=== PATIENT | male | born 1995 | race African-American/Black ===

== ENCOUNTER 2020-07-25 11:35 | Emergency (ER) | payer OTHER ==
[~2020-07-25] VITALS: Ht 185.4 cm; Wt 113.4 kg
[2020-07-25] MEDS ORDERED: ALBUTEROL SULFATE 2.5 MG/3 ML NEBU ONE (12:04)
[2020-07-25] MEDS ORDERED: ACETAMINOPHEN ES 500 MG TABLET PO ONE (12:15)
[2020-07-25] MEDS ORDERED: ACETAMINOPHEN ES 500 MG TABLET ONE (12:23)
--- NOTE | 2020-07-25 12:29 | NUR ---
Patient discharged to home in stable condition. Written and verbal after care instructions given. Patient verbalizes understanding of instructions. Stressed follow up or return to ER for worsening s/s.
== END 2020-07-25 12:30 | disposition home or self-care (01) ==
LOC: ER 11:35
DX: R43.8 Other disturbances of smell and taste (principal); R51.9 Headache, unspecified; M79.10 Myalgia, unspecified site; Z20.828 Contact with and (suspected) exposure to other viral communicable diseases; Z87.442 Personal history of urinary calculi; R03.0 Elevated blood-pressure reading, without diagnosis of hypertension
CPT/HCPCS: A4663; A9150